=== PATIENT | male | born 1995 | race Asian ===

== ENCOUNTER 2022-05-11 00:49 | Emergency (ER) | payer OTHER ==
[~2022-05-11] VITALS: Ht 167.6 cm; Wt 73.3 kg
[2022-05-11 00:49] VITALS: BP 131/97
--- NOTE | 2022-05-11 00:49 | NUR ---
PT BIB [facility]
[2022-05-11 02:19] VITALS: BP 131/97
--- NOTE | 2022-05-11 02:19 | NUR ---
Patient discharged. Written and verbal after care instructions given and explained. Patient verbalized understanding. Patient with Police in custody. All questions addressed prior to discharge. Advised to follow up with [facility]D.
== END 2022-05-11 02:19 ==
LOC: MED 00:49
DX: V49.88XA Car occupant (driver) (passenger) injured in other specified transport accidents, initial encounter; Y93.89 Activity, other specified; Y92.89 Other specified places as the place of occurrence of the external cause; Y99.8 Other external cause status
CPT/HCPCS: 99283